=== PATIENT | male | born 1990 | race Two or more races ===

== ENCOUNTER → 2016-11-29 | Day surgery (SDC) | payer OTHER ==
[~2016-11-29] VITALS: Ht 172.7 cm; Wt 74.8 kg
[~2016-11-29] MED LIST: ACETAMINOPHEN 650MG ER TAB (TYLENOL ARTHRITIS) PO SCH; BACITRACIN OINT 30GM As Ordered ONE; BACT800T5 PO; BACTRIM 160MG/800MG DS TAB PO SCH; BUPIVACAINE HCL 0.25% 30 ML VIAL As Ordered ONE; KETOROLAC 60 MG/2 ML VIAL (J1885) As Ordered ONE; LIDOCAINE 1% SDV INJ 30 ML VIAL As Ordered ONE; LIDOCAINE 2% INJ 100 MG/5 ML SDV (FOR ANES.) As Ordered ONE; LR 1,000 ML IV ONE; LR 1,000 ML IV SCH; MIDAZOLAM INJ 2 MG/2 ML VIAL (J2250) As Ordered ONE; ONDANSETRON 4MG/2ML VIAL (J2405) As Ordered ONE; ONDANSETRON 4MG/2ML VIAL (J2405) IV PRN; PERCOCET 5MG/325MG TAB PO PRN; PROPOFOL 200 MG/20 ML VIAL As Ordered ONE; TYLE650T35 PO; dexameTHASONE 4 MG/ML 1ML VIAL (J1100) As Ordered ONE; fentaNYL 100 MCG/2 ML INJECTION (J3010) IV PRN; fentaNYL 250 MCG/5 ML INJECTION (J3010) As Ordered ONE
[2016-11-29 16:35] VITALS: BP 132/78
--- NOTE | 2016-11-30 12:04 | RO ---
DATE OF PROCEDURE: 11/29/2016 PREPROCEDURE DIAGNOSES: Phimosis and recurrent balanitis. POSTPROCEDURE DIAGNOSES: Phimosis and recurrent balanitis. SURGERY PERFORMED: Circumcision. SURGEON: Dr. Henri Win [place]AL[place] BOY: None. ANESTHESIA: General. COMPLICATIONS: None. ESTIMATED BLOOD LOSS: N/A. HISTORY OF PRESENT ILLNESS: This is a 26-year-old male patient with vitiligo. He also has recurrent balanitis and phimosis. For this reason, he consented for a circumcision DESCRIPTION OF PROCEDURE: Procedure description; In a patient under general anesthesia in supine position, after prepping and draping the area of concern, which included the entire genitalia and abdomen, we started by doing a local anesthesia also with a mixture of lidocaine 1% and Marcaine 0.25%, a total of 12 mL was performed around the base of the penis to block the penile shaft. We then proceeded to do an incision, 1 cm away from the sulcus glans with a cold knife 15 blade. 4 cm toward the base of the penis, we did another incision in circumferential fashion. With Metzenbaum scissors, we excised the skin between both incisions. We then fulgurated the bleeding vessels with electro Bovie cautery. Once hemostasis was complete, we put back together both borders of skin with catgut chromic in separate stitches. We then placed bacitracin cream on top, 4 x 4's, and Coban around the penis. PLAN: The patient will come in 2 days for removal of the Coban. He may shower, no sit baths after 3 days. No sex for 1 month. He is going to take antibiotic, Bactrim double strength one tablet by mouth twice a day for 10 days and Tylenol for pain.
== END | disposition home or self-care (01) ==
LOC: M SDC 10:27
PROVIDERS: ATTEND Urology
DX: N47.1 Phimosis (principal); N48.1 Balanitis; F17.210 Nicotine dependence, cigarettes, uncomplicated; Z91.013 Allergy to seafood
CPT/HCPCS: 54161; 88304; J0690; J1100; J1885; J2250; J2405; J3010